=== PATIENT | female | born 1975 | race Two or more races ===

== ENCOUNTER 2024-06-11 13:04 | Emergency (ER) | payer OTHER ==
[~2024-06-11] VITALS: Ht 124.5 cm; Wt 71.2 kg
[2024-06-11] MEDS ORDERED: TENORMIN50 M1 PO (13:31)
[2024-06-11] MEDS ORDERED: NORTRIPTYLINE H50 MG PO (13:32)
[2024-06-11] MEDS ORDERED: TRICOR145 MG PO (13:32)
[2024-06-11] MEDS ORDERED: CYMBALTA60 MG PO (13:32)
[2024-06-11] MEDS ORDERED: LYRICA50 MG PO (13:32)
[2024-06-11] MEDS ORDERED: RESTORIL30 M1 PO (13:33)
[2024-06-11] MEDS ORDERED: HYDROXYZIN10 MG/5 ML PO (13:33)
[2024-06-11] MEDS ORDERED: TRAMADOL HCL 50 MG TABLET PO ONE (13:45)
[2024-06-11 14:44] LABS: PH,URINE 6.5 (5.0-8.0); URINE APPEARANCE Cloudy; URINE BILIRRUBIN Negative (NEGATIVE); URINE BLOOD Large; URINE COLOR Orange; URINE GLUCOSE Negative (NEGATIVE); URINE KETONE Negative (NEGATIVE); URINE LEUKOCYTE Trace; URINE NITRATE Negative; URINE PROTEIN Negative (NEGATIVE); URINE UROBILINOGEN 0.2 E.U./dl
[2024-06-11 14:47] LABS: URINE BACTERIA 79.3 uL (0.0-1933); URINE EPITHELIAL CELLS 3.8 uL (0.0-38.8); URINE RBC 3004.3 uL (0.0-20.8); URINE WBC 22.3 uL (0.0-23.2)
[2024-06-11 14:47] LABS: HEMATOCRIT 36.4 % (36.0-45.00); HEMOGLOBIN 12.5 g/dL (12.0-15.00); MEAN CELL VOLUME 87.5 fL (80.00-100.00); MEAN CORPUSCULAR HGB CONC 34.3 g/dl (32.0-36.0); PLATELET COUNT 245 K/uL (150-450); RED BLOOD COUNT 4.16 M/uL (4.00-6.00); RED CELL DISTRIBUTION WIDTH 13.2 % (11.5-14.5)
[2024-06-11 15:19] LABS: ALBUMIN 3.7 gm/dL (3.4-5.0); BILIRUBIN TOTAL 0.22 mg/dL (0.3-1.2); CALCIUM 9.6 mg/dL (8.5-10.1); CREATININE SERUM 0.73 mg/dL (0.55-1.02); GFR 85.45; GLOBULINA 3.1 G/DL (2.4-3.5); POTASSIUM 4.14 mEq/L (3.5-5.1); TOTAL PROTEIN 6.8 gm/dL (6.4-8.2)
[2024-06-11 16:00] LABS: INR 0.98; PARTIAL THROMBOPLASTIN TIME 24.2 SECONDS (22.0-34.0); PROTHROMBIN TIME 10.3 SECONDS (9.0-11.5)
== END 2024-06-11 15:58 | disposition home or self-care (01) ==
LOC: ER 13:05
PROVIDERS: General Practice
DX: N93.8 Other specified abnormal uterine and vaginal bleeding (principal); R10.2 Pelvic and perineal pain